=== PATIENT | male | born 1975 ===

== ENCOUNTER 2017-10-19 11:29 | Observation (INO) | payer MEDICAID ==
--- NOTE | 2017-10-19 12:15 | C.PDOC ---
History Of Present Illness 42yo male, history of hypertension and currently taking Losartan and Aspirin, comes to ER with complaints of intermittent palpitations x 2 weeks. Patient states he has not followed up with a doctor regarding the palpitations. He denies any associated chest pain or shortness of breath. He does report being increasingly stressed. Patient states he took his daily dose of Aspirin today and states he is taking Aspirin because his "doctor told me to". No other complaints. Time Seen by Provider: 10/19/17 11:51 Chief Complaint (Nursing): Palpitations History Per: Patient History/Exam Limitations: no limitations Onset/Duration Of Symptoms: Intermittent Episodes Current Symptoms Are (Timing): Still Present Quality: Squeezing Associated Symptoms: denies: Nausea, Dyspnea, Diaphoresis, Syncope Additional History Per: Patient Past Medical History Reviewed: Historical Data, Nursing Documentation, Vital Signs - Medical History PMH: HTN Surgical History: No Surg Hx Family History: States: Other Other Family History: Mother had heart disease - Social History Hx Tobacco Use: Yes (smokes) Hx Alcohol Use: Yes Hx Substance Use: Yes - Immunization History Hx Tetanus Toxoid Vaccination: No Hx Influenza Vaccination: No Hx Pneumococcal Vaccination: No Review Of Systems Except As Marked, All Systems Reviewed And Found Negative. Cardiovascular: Positive for: Palpitations. Negative for: Chest Pain Respiratory: Negative for: Shortness of Breath Gastrointestinal: Negative for: Nausea Physical Exam - Physical Exam Appears: Non-toxic, No Acute Distress Skin: Normal Color, Warm, Dry Head: Atraumatic, Normacephalic Eye(s): bilateral: Normal Inspection Nose: Normal Throat: Normal Neck: Normal, Supple Chest: Symmetrical, No Tenderness Cardiovascular: Rhythm Regular, No Murmur Respiratory: Normal Breath Sounds Gastrointestinal/Abdominal: Normal Exam, Soft, No Tenderness Back: Normal Inspection Extremity: Normal ROM, No Pedal Edema Neurological/Psych: Oriented x3 ED Course And Treatment - Laboratory Results Result Diagrams: 10/19/17 12:20 10/19/17 12:20 ECG: Interpreted By Me, Viewed By Me ECG Rhythm: Sinus Rhythm ECG Interpretation: Normal Interpretation Of ECG: Normal intervals, normal axis, no ST/T changes Rate From EC Medical Decision Making Medical Decision Making: Assessment: Palpitations Plan: * EKG * CXR * Labs * * palpitations - patient resting comfortably, states improvement. Will admit to tele observation, s/o Dr. Kylee Varma. Disposition Discussed With : Valeri Varma Doctor Will See Patient In The: Hospital Counseled Patient/Family Regarding: Studies Performed, Diagnosis - Disposition Disposition: HOSPITALIZED Disposition Time: 13:56 Condition: FAIR Forms: [facility] (Vietnamese) - Clinical Impression Clinical Impression: Chest pain, Palpitations - Scribe Statement The provider has reviewed the documentation as recorded by the Dahlia Chacko Provider Attestation: All medical record entries made by the Dahlia were at my direction and personally dictated by me. I have reviewed the chart and agree that the record accurately reflects my personal performance of the history, physical exam, medical decision making, and the department course for this patient. I have also personally directed, reviewed, and agree with the discharge instructions and disposition.
[2017-10-19 12:26] LABS: BASO # 0.1 K/uL (0.0-0.2); BASO % 0.6 % (0.0-2.0); EOS # 0.2 K/uL (0.0-0.7); EOS % 2.1 % (0.0-4.0); HEMOGLOBIN 14.8 g/dL (12.0-18.0); LYMPH # 2.8 K/uL (1.0-4.3); LYMPH % 26.4 % (20.0-40.0); MEAN CELL VOLUME 79.9 fL (80.0-94.0); MEAN PLATELET VOLUME 6.8 fL (7.2-11.7); MONO # 0.5 K/uL (0.0-0.8); MONO % 5.1 % (0.0-10.0); NEUT # 6.9 K/uL (1.8-7.0); NEUT % 65.8 % (50.0-75.0); RBC 5.26 Mil/uL (4.40-5.90); RED CELL DISTRIBUTION WIDTH 13.7 % (11.5-14.5); WHITE BLOOD COUNT 10.4 K/uL (4.8-10.8)
[2017-10-19 12:37] LABS: ALB/GLOB RATIO 1.5 (1.0-2.1); ALBUMIN 4.5 g/dL (3.5-5.0); ALT/SGPT 45 U/L (21-72); AST/SGOT 26 U/L (17-59); BLOOD UREA NITROGEN 12 mg/dL (9-20); CALCIUM 9.5 mg/dl (8.6-10.4); GFR NON-AFRICAN AMERICAN > 60
[2017-10-19 12:58] LABS: B-TYPE NATRIURETIC PEPTIDE 54.8 pg/mL (0-450)
--- NOTE | 2017-10-19 13:25 | RAD ---
Date of service: 10/19/2017 PROCEDURE: CHEST RADIOGRAPH, 1 VIEW HISTORY: SOB COMPARISON: None available. FINDINGS: LUNGS: Clear. PLEURA: No pneumothorax or pleural fluid seen. CARDIOVASCULAR: Top-normal heart size. Top-normal pulmonary vasculature. OSSEOUS STRUCTURES: No significant abnormalities. VISUALIZED UPPER ABDOMEN: Normal. OTHER FINDINGS: None. IMPRESSION: No definitive active pathology noted
[2017-10-19] MEDS ORDERED: Aspirin 325 mg EC Tablets PO STA (13:56)
[2017-10-19 17:50] LABS: CK-MB 1.01 ng/mL (0.0-3.38)
--- NOTE | 2017-10-19 18:28 | CP.PCM.HP ---
History of Present Illness - History of Present Illness History of Present Illness: 42-year-old male with PMH of HTN comes to ER with complaints of intermittent palpitations since 2 weeks. Patient is taking losartan and aspirin. Denies chest pain or SLB. Admits feeling increasingly stressed recently. Admits he is taking aspirin because is DrEnedina told him. Denies fever, abdominal pain, nausea , vomiting, lightheadedness, diaphoresis, syncope Past Patient History - Infectious Disease Hx of Infectious Diseases: None - Past Social History Smoking Status: Heavy Smoker > 10 Cigarettes Daily - CARDIAC Hx Hypertension: Yes - PSYCHIATRIC Hx Substance Use: Yes - SURGICAL HISTORY Hx Surgeries: No - ANESTHESIA Hx Anesthesia: No Meds Allergies/Adverse Reactions: Allergies Allergy/AdvReac Type Severity Reaction Status Date / Time No Known Allergies Allergy Verified 10/19/17 11:52 Results - Vital Signs Recent Vital Signs: Last Vital Signs Temp Pulse 87 10/19/17 16:02 Resp 18 10/19/17 16:02 BP 119/78 10/19/17 16:02 Pulse Ox 100 10/19/17 16:02 - Labs Result Diagrams: 10/19/17 12:20 10/19/17 12:20 Labs: Laboratory Results - last 24 hr 10/19/17 10/19/17 10/19/17 12:20 12:20 17:19 WBC 10.4 RBC 5.26 Hgb 14.8 Hct 42.1 MCV 79.9 L MCH 28.0 MCHC 35.0 RDW 13.7 Plt Count 324 MPV 6.8 L Neut % (Auto) 65.8 Lymph % (Auto) 26.4 [place] % (Auto) 5.1 Eos % (Auto) 2.1 Baso % (Auto) 0.6 Neut # (Auto) 6.9 Lymph # (Auto) 2.8 [place] # (Auto) 0.5 Eos # (Auto) 0.2 Baso # (Auto) 0.1 Sodium 139 Potassium 3.9 Chloride 99 Carbon Dioxide 27 Anion Gap 16 BUN 12 Creatinine 1.0 Est GFR ( Amer) > 60 Est GFR (Non-Af Amer) > 60 Random Glucose 130 H Calcium 9.5 Total Bilirubin 0.6 AST 26 ALT 45 Alkaline Phosphatase 78 Total Creatine Kinase 156 CK-MB (Mass) 1.01 Troponin I < 0.0120 < 0.0120 NT-Pro-B Natriuret Pep 54.8 Total Protein 7.5 Albumin 4.5 Globulin 3.0 Albumin/Globulin Ratio 1.5 Assessment & Plan (1) Chest pain Status: Acute (2) Palpitations Status: Acute - Assessment and Plan (Free Text) Plan: Patient seen and examined bedside ECG showing sinus rhythm Chest x-ray Labs Telemetry observation
[2017-10-19 19:07] VITALS: RESP 20
[2017-10-20 00:39] VITALS: TEMP 97.8
[2017-10-20 08:12] VITALS: BP 123/84; O2SAT 98
--- NOTE | 2017-10-20 09:48 | CP.PCM.CON ---
History of Present Illness - History of Present Illness History of Present Illness: CC: Chest pain HPI: 42 year old man with HTN, COPD. He is reporting 2 month onset of chest pain. Pain is located in the left chest. Pain is sharp in character. Pain is worse with emotional stress. Improves in a random manor. Review of Systems - Review of Systems All systems: reviewed and no additional remarkable complaints except Past Patient History - Infectious Disease Hx of Infectious Diseases: None - Past Medical History & Family History Past Family History: Reviewed and not pertinent - Past Social History Smoking Status: Heavy Smoker > 10 Cigarettes Daily - CARDIAC Hx Hypertension: Yes - PSYCHIATRIC Hx Substance Use: Yes - SURGICAL HISTORY Hx Surgeries: No - ANESTHESIA Hx Anesthesia: No Meds Allergies/Adverse Reactions: Allergies Allergy/AdvReac Type Severity Reaction Status Date / Time No Known Allergies Allergy Verified 10/19/17 11:52 - Medications Medications: Current Medications Acetaminophen (Tylenol 325mg Tab) 650 mg PO Q6 PRN PRN Reason: Pain, moderate (4-7) Last Admin: 10/19/17 17:38 Dose: 650 mg Aspirin (Aspirin) 325 mg PO DAILY [facility] Last Admin: 10/19/17 17:04 Dose: Not Given Enoxaparin Sodium (Lovenox) 40 mg SC DAILY [facility] Hydrochlorothiazide (Microzide) 12.5 mg PO DAILY [facility] Losartan Potassium (Cozaar) 50 mg PO DAILY [facility] Physical Exam - Constitutional Appears: Well, Non-toxic - Head Exam Head Exam: ATRAUMATIC, NORMAL INSPECTION - Eye Exam Eye Exam: PERRL. absent: Scleral icterus - ENT Exam ENT Exam: Mucous Membranes Moist, Normal External Ear Exam - Neck Exam Neck exam: Positive for: Full Rom. Negative for: Lymphadenopathy, Thyromegaly - Respiratory Exam Respiratory Exam: Clear to Auscultation Bilateral, NORMAL BREATHING PATTERN - Cardiovascular Exam Cardiovascular Exam: REGULAR RHYTHM, RRR, +S1, +S2. absent: JVD - GI/Abdominal Exam GI & Abdominal Exam: Normal Bowel Sounds. absent: Organomegaly - Extremities Exam Extremities exam: Positive for: pedal pulses present. Negative for: calf tenderness, pedal edema - Neurological Exam Neurological exam: CN II-XII Intact, Oriented x3 - Psychiatric Exam Psychiatric exam: Normal Affect, Normal Mood Results - Vital Signs Recent Vital Signs: Last Vital Signs Temp 97.8 F 10/20/17 07:00 Pulse 65 10/20/17 08:19 Resp 20 10/20/17 07:00 BP 123/84 10/20/17 07:00 Pulse Ox 98 10/20/17 08:19 - Labs Result Diagrams: 10/19/17 12:20 10/19/17 12:20 Labs: Laboratory Results - last 24 hr 10/19/17 10/19/17 10/19/17 12:20 12:20 17:19 WBC 10.4 RBC 5.26 Hgb 14.8 Hct 42.1 MCV 79.9 L MCH 28.0 MCHC 35.0 RDW 13.7 Plt Count 324 MPV 6.8 L Neut % (Auto) 65.8 Lymph % (Auto) 26.4 [place] % (Auto) 5.1 Eos % (Auto) 2.1 Baso % (Auto) 0.6 Neut # (Auto) 6.9 Lymph # (Auto) 2.8 [place] # (Auto) 0.5 Eos # (Auto) 0.2 Baso # (Auto) 0.1 Sodium 139 Potassium 3.9 Chloride 99 Carbon Dioxide 27 Anion Gap 16 BUN 12 Creatinine 1.0 Est GFR ( Amer) > 60 Est GFR (Non-Af Amer) > 60 Random Glucose 130 H Calcium 9.5 Total Bilirubin 0.6 AST 26 ALT 45 Alkaline Phosphatase 78 Total Creatine Kinase 156 CK-MB (Mass) 1.01 Troponin I < 0.0120 < 0.0120 NT-Pro-B Natriuret Pep 54.8 Total Protein 7.5 Albumin 4.5 Globulin 3.0 Albumin/Globulin Ratio 1.5 - EKG Data EKG Interpreted by: Myself EKG shows normal: Sinus rhythm - Imaging and Cardiology Chest x-ray Additional comment: No infiltrates, poor inspirtory effort Assessment & Plan - Assessment and Plan (Free Text) Assessment: 42 year old man with chest pain atypical in character check serial troponin and EKG. EKG so far is negative for ischemia HTN is chronic and stable on losartan COPD chronic and abuses tobacco, we discussed for ten minutes the deleterious effects of nicotine and the benefits of abstinence. He is precontemplative. If serial trop is negative, he can follow up in my office in one week to reassess his symptoms.
[2017-10-20] MEDS ORDERED: Enoxaparin 40 mg Syringe SC SCH (10:00)
[2017-10-20] MEDS ORDERED: Home Med 1 UNIT (Losartan/Hydrochlorothiazide [Losartan-Hctz 50-12.5 Mg Tab] 1 EACH) PO SCH (10:00)
[2017-10-20 10:57] LABS: CK-MB 1.31 ng/mL (0.0-3.38)
[2017-10-20 12:05] VITALS: PULSE 70
--- NOTE | 2017-10-20 17:13 | CARD ---
APPROVED REPORT Date of service: 10/19/2017 EKG Measurement Heart [id number] <Conclusion> Normal sinus rhythm Normal ECG
--- NOTE | 2017-10-20 17:28 | CP.PCM.PN ---
Subjective - Date & Time of Evaluation Date of Evaluation: 10/20/17 Time of Evaluation: 11:00 - Subjective Subjective: Patient seen today, states feels better, denies any chest pain, sob, palpitations, dizziness , c/o anxious at times No overnigh t events reported by RN troponin x 3 - negative Objective - Vital Signs/Intake and Output Vital Signs (last 24 hours): Temp Pulse Resp BP Pulse Ox 97.8 F 70 20 123/84 98 10/20/17 07:00 10/20/17 12:00 10/20/17 07:00 10/20/17 07:00 10/20/17 12:08 - Labs Labs: 10/19/17 12:20 10/19/17 12:20 Assessment and Plan - Assessment and Plan (Free Text) Assessment: A/P 42 yr old felipe jose pmhx of HTN and copd admitted with chest pain troponin x 3 - negative seen by Dr. Levin today, cleared for discharge home today if tropnin 3rd negative and f/u with his office in 1 week for cardiac work up seen by Dr. Manuela regan , cleared for discharge home tooday and f/u with Dr. Manuela regan office in 3-5 days discharge plan discussed with patient who understands and agrees with plan patient instructed to returns to ED if symptoms returns
== END 2017-10-20 14:24 | disposition home or self-care (01) ==
LOC: C.ER 11:29 → C.9E 13:55 → C.5S 18:27
PROVIDERS: ADMIT Internal Medicine Nephrology; ATTEND Internal Medicine Nephrology
DX: R07.89 Other chest pain (principal); R00.2 Palpitations; I10 Essential (primary) hypertension; J44.9 Chronic obstructive pulmonary disease, unspecified; F17.210 Nicotine dependence, cigarettes, uncomplicated; Z79.82 Long term (current) use of aspirin; Z82.49 Family history of ischemic heart disease and other diseases of the circulatory system
CPT/HCPCS: 36415; 71045; 80053; 83880; 84484; 85025; 93005; 99285; G0378; J1650